=== PATIENT | female | born 1955 | race Caucasian/White ===

== ENCOUNTER → 2017-03-07 | Day surgery (SDC) | payer BC ==
[~2017-03-07] MED LIST: ASPIRIN81 M2 PO; ATENOLOL PO; ATENOLOL50 MG PO; ATORVASTATIN CA10 MG PO; CHANTIX1 MG PO; COMBIVENT14.7 GM INH; LASIX20 MG PO; LISINOPRIL10 MG PO; LOSARTAN-HCTZ1 EAC1 PO; MONTELUKAST SOD10 MG PO; NICOTINE TRANSD21 MG EXT; NITROGLYGERIN0.4 MG SL; PREDNISONE10 MG PO; PROTONIX PO; PROVENTIL HFA; SYMBICORT 160/4.6 G1 INH; SYMBICORT 16010.2 GM IH; TUDORZA PRESS400 MCG IH; VENLAFAXINE H37.5 M1 PO; VITAL-D RX TABL1 TAB PO
--- NOTE | ~2017-03-07 | OR ---
Unit #: [id number] #: [id number] Patient: TOY REDDING [id number] [facility] [address] [place], [place] [address] [id number] MR#: [id number] NAME: TOY REDDING ROOM: Date of Procedure: 03/07/2017 Admission Date: 03/07/2017 Surgeon: Ronan Pugh M.D. : 1955 Attending Physician: Ronan Pugh M.D. Primary Care Physician: Trixie Barnett M.D. OPERATIVE REPORT PRIMARY CARE PHYSICIAN Trixie Barnett M.D. PREOPERATIVE DIAGNOSIS History of adenomatous polyps colon. POSTOPERATIVE DIAGNOSIS Polyps x2. PROCEDURE PERFORMED Colonoscopy to cecum with snare polypectomy at the hepatic flexure and cold biopsy forceps polypectomy at 18 cm. ANESTHESIA Monitored anesthesia. INDICATIONS FOR PROCEDURE A 62-year-old female with a history of adenomatous polyps colon, is due for surveillance. DESCRIPTION OF PROCEDURE The patient was admitted to [facility], positively identified, transported to the endoscopy suite, where after appropriate monitoring and positioning, she was sedated by the nurse dairy chemist. On rectal examination, she had some external hemorrhoidal skin tags, but no active hemorrhoidal disease. Digital examination was unremarkable. The colonoscope was passed through the anal verge throughout the extent of the colon to the cecum, where the appendiceal orifice was photodocumented. On antegrade and retrograde visualization, two polyps were identified, one at the hepatic flexure which was removed by snare polypectomy, recovered and sent to the laboratory. As we came back in a retrograde fashion, a sessile polyp at 18 cm from the anal verge was identified and it was removed by cold biopsy forceps polypectomy. The rest of the endoscopic evaluation was unremarkable. The patient tolerated the procedure well and was transported recovery in stable condition. Findings and postoperative instructions were discussed with her daughter and [id number]. We will call the patient with the results of the pathological evaluation of the polyps and recommended followup at that time. Dictated by... Ronan Pugh M.D. Unit #: [id number] #: [id number] Patient: TOY REDDING RS/modl TD: 03/07/2017 07:58 JOB #: [id number] OPERATIVE REPORT Page 1 of 1 X Ronan Pugh MD PROCEDURE OPERATIVE NOTE
== END | disposition home or self-care (01) ==
LOC: COPS 02-21 07:00
DX: Z12.11 Encounter for screening for malignant neoplasm of colon (principal); D12.3 Benign neoplasm of transverse colon; K62.1 Rectal polyp; K59.00 Constipation, unspecified; I11.0 Hypertensive heart disease with heart failure; I50.30 Unspecified diastolic (congestive) heart failure; E78.5 Hyperlipidemia, unspecified; E66.9 Obesity, unspecified; G47.33 Obstructive sleep apnea (adult) (pediatric); M19.90 Unspecified osteoarthritis, unspecified site; J44.9 Chronic obstructive pulmonary disease, unspecified; J45.909 Unspecified asthma, uncomplicated; F41.9 Anxiety disorder, unspecified; F32.9 Major depressive disorder, single episode, unspecified; F17.210 Nicotine dependence, cigarettes, uncomplicated; Z68.35 Body mass index [BMI] 35.0-35.9, adult; Z86.010 Personal history of colon polyps; Z88.0 Allergy status to penicillin; Z88.5 Allergy status to narcotic agent; Z88.8 Allergy status to other drugs, medicaments and biological substances; Z91.013 Allergy to seafood; Z91.041 Radiographic dye allergy status; Z79.51 Long term (current) use of inhaled steroids; Z79.899 Other long term (current) drug therapy; Z90.49 Acquired absence of other specified parts of digestive tract; Z90.710 Acquired absence of both cervix and uterus
CPT/HCPCS: 88305